=== PATIENT | female | born 1985 ===

== ENCOUNTER 2019-06-11 11:33 | Inpatient (IN) | payer OTHER ==
[~2019-06-11] VITALS: Ht 154.9 cm; Wt 74.5 kg
[2019-06-11] MEDS ORDERED: OXYTOCIN 30U/ 0.9% NaCL 500ML 500 ML IV PRN (20:53)
[2019-06-11] MEDS ORDERED: OXYTOCIN 30U/ 0.9% NaCL 500ML 500 ML IV ONE (20:53)
[2019-06-11] MEDS ORDERED: TERBUTALINE 1 MG/ML, 1ML IVPush PRN (21:00)
[2019-06-11] MEDS ORDERED: ONDANSETRON 2MG/ML, 2ML IVPush PRN (21:00)
[2019-06-11] MEDS ORDERED: PENICILLIN GK 5,000,000 UNITS in DEXTROSE 5% 100 ML IVPB ONE ×2 (21:00→21:09)
[2019-06-11] MEDS ORDERED: FENTANYL PF 100 MCG/2ML IVPush PRN (21:00)
[2019-06-11] MEDS ORDERED: SODIUM CITRATE/CITRIC ACID 30 ML UDC PO PRN (21:00)
[2019-06-11] MEDS ORDERED: TERBUTALINE 1 MG/ML, 1ML SQ PRN (21:00)
[2019-06-11] MEDS ORDERED: FENTANYL PF 100 MCG/2ML IV PRN (21:00)
[2019-06-11] MEDS: LACTATED RINGERS 1,000 ML IV SCH (21:08)
[2019-06-11 21:25] LABS: BASOPHILS # (AUTO) 0.01 x10^3/uL (0-0.1); BASOPHILS % (AUTO) 0 % (0-1); EOSINOPHILS # (AUTO) 0.04 x10^3/uL (0-0.4); EOSINOPHILS % (AUTO) 0 % (1-7); LYMPHOCYTES # (AUTO) 1.75 x10^3/uL (1-3.4); LYMPHOCYTES % (AUTO) 20 % (22-44); MD NO; MEAN CORPUSCULAR HEMOGLOBIN 31.8 pg (27.0-34.8); MEAN CORPUSCULAR HGB CONC 33.7 g/dL (32.4-35.8); MEAN CORPUSCULAR VOLUME 94.5 fL (80-100); MEAN PLATELET VOLUME 8.1 fL (7.4-10.4); MONOCYTES # (AUTO) 0.65 x10^3/uL (0.2-0.8); MONOCYTES % (AUTO) 7 % (2-9); NEUTROPHILS # (AUTO) 6.35 x10^3/uL (1.8-6.8); NEUTROPHILS % (AUTO) 72 % (42-75); PLATELET COUNT 273 x10^3/uL (130-400); RED CELL DISTRIBUTION WIDTH 13.4 % (9.6-15.2)
[2019-06-11] MEDS: PLEASE ENTER HEIGHT AND WEIGHT MC SCH (21:30)
[2019-06-11] MEDS ORDERED: PLEASE ENTER ALLERGIES MC SCH (21:30)
[2019-06-11] MEDS ORDERED: OXYTOCIN 30U/ 0.9% NaCL 500ML 500 ML ONE (22:03)
[2019-06-11] MEDS ORDERED: NEWBORN KIT ONE (22:03)
[2019-06-11] MEDS ORDERED: MISOPROSTOL 200 MCG TABLET ONE (22:03)
[2019-06-11] MEDS ORDERED: LIDOCAINE 1%, 20ML ONE (22:03)
[2019-06-12] MEDS: LACTATED RINGERS 1,000 ML IV SCH ×5 (01:01→16:39)
[2019-06-12] MEDS ORDERED: PREN1TAB60 PO (02:03)
[2019-06-12] MEDS ORDERED: FENTANYL/BUPIV./NS/PF 250 ML EPIDCONT SCH (03:01)
[2019-06-12] MEDS: PLEASE ENTER HEIGHT AND WEIGHT MC SCH (03:45)
[2019-06-12] MEDS: PENICILLIN GK 2,500,000 UNITS in DEXTROSE 5% 100 ML IVPB SCH ×4 (04:24→18:50)
[2019-06-12] MEDS: D5%-LACTATED RINGERS 1,000 ML IV SCH ×4 (05:59→21:59)
[2019-06-12] MEDS ORDERED: FENTANYL/BUPIV./NS/PF 250 ML EPIDCONT ONE (07:14)
[2019-06-12 07:30] VITALS: BP 125/70
[2019-06-12] MEDS ORDERED: FENTANYL PF 100 MCG/2ML ONE (07:30)
[2019-06-12] MEDS ORDERED: BUPIVACAINE 0.25% ONE (07:31)
[2019-06-12] MEDS ORDERED: LIDOCAINE/PF 1.5%-EPI 1:200K, 30ML ONE (08:00)
[2019-06-13] MEDS ORDERED: LACTATED RINGERS 1,000 ML IVBOLUS ONE (00:30)
[2019-06-13] MEDS ORDERED: CEFAZOLIN PMX 1GM/50ML 50 ML IVPB ONE (00:30)
[2019-06-13] MEDS ORDERED: SODIUM CITRATE/CITRIC ACID 30 ML UDC PO ONE (00:30)
[2019-06-13] MEDS ORDERED: AZITHROMYCIN 500 MG in SODIUM CHLORIDE 0.9% 250 ML IV ONE (00:30)
[2019-06-13] MEDS ORDERED: SODIUM CITRATE/CITRIC ACID 30 ML UDC ONE (00:35)
[2019-06-13] MEDS ORDERED: METOCLOPRAMIDE 5 MG/ML, 2ML ONE (00:35)
[2019-06-13] MEDS ORDERED: FENTANYL PF 100 MCG/2ML ONE (00:43)
[2019-06-13] MEDS ORDERED: CEFAZOLIN 1,000 MG ONE (01:26)
[2019-06-13] MEDS ORDERED: PHENYLEPHRINE 10 MG/ML ONE (01:26)
[2019-06-13] MEDS ORDERED: BUPIVACAINE/PF 0.25% ONE (01:26)
[2019-06-13] MEDS ORDERED: LIDOCAINE-MPF 2% ,5ML ONE (01:26)
[2019-06-13] MEDS ORDERED: EPHEDRINE 50 MG/ML, 1ML ONE (01:26)
[2019-06-13] MEDS ORDERED: WATER-INJECTION,STERILE 10 ML IV ONE (01:26)
[2019-06-13] MEDS ORDERED: OXYTOCIN 10 UNITS/ML, 1ML ONE (01:26)
[2019-06-13] MEDS ORDERED: BUPIVACAINE 0.25% ONE ×3 (01:27→02:33)
[2019-06-13] MEDS ORDERED: morphine SULFATE/PF 1 MG/ML, 10ML ONE (01:55)
[2019-06-13] MEDS: OXYTOCIN 30U/ 0.9% NaCL 500ML 500 ML IV SCH ×3 (02:49→19:50)
[2019-06-13] MEDS ORDERED: LACTATED RINGERS 1,000 ML IV SCH (02:49)
[2019-06-13] MEDS ORDERED: SIMETHICONE 80 MG CHEW TAB PO PRN (03:00)
[2019-06-13] MEDS ORDERED: METOCLOPRAMIDE 5 MG/ML, 2ML IV PRN (03:00)
[2019-06-13] MEDS ORDERED: MISOPROSTOL 200 MCG TABLET PO PRN (03:00)
[2019-06-13] MEDS ORDERED: KETOROLAC 30 MG/1 ML ONE (03:47)
[2019-06-13] MEDS ORDERED: HYDROmorphone 2 MG/ML, 1ML IVPush PRN (04:00)
[2019-06-13] MEDS ORDERED: ONDANSETRON 2MG/ML, 2ML IV PRN (04:00)
[2019-06-13] MEDS ORDERED: KETOROLAC 30 MG/1 ML IV PRN (04:00)
[2019-06-13] MEDS ORDERED: OXYcodone 5 MG/5 ML ORAL.SOL UDC PO PRN (04:00)
[2019-06-13] MEDS ORDERED: FENTANYL PF 100 MCG/2ML IV PRN (04:00)
[2019-06-13] MEDS: LACTATED RINGERS 1,000 ML IV SCH ×3 (04:15→19:50)
[2019-06-13] MEDS ORDERED: OXYcodone 5 MG/5 ML ORAL.SOL UDC ONE (04:38)
[2019-06-13 05:30] VITALS: BP 123/80
[2019-06-13] MEDS: D5%-LACTATED RINGERS 1,000 ML IV SCH (05:59)
[2019-06-13 07:35] VITALS: BP 115/78
[2019-06-13] MEDS: DOCUSATE 100 MG CAPSULE PO PRN (08:10)
[2019-06-13] MEDS: PRENATAL VIT/IRON/FA 1 EACH TABLET PO SCH (08:10)
[2019-06-13] MEDS: OXYcodone IR 5MG TABLET PO PRN ×3 (08:10→17:11)
[2019-06-13 09:56] LABS: MEAN CORPUSCULAR HEMOGLOBIN 31.1 pg (27.0-34.8); MEAN CORPUSCULAR HGB CONC 33.3 g/dL (32.4-35.8); MEAN CORPUSCULAR VOLUME 93.4 fL (80-100); MEAN PLATELET VOLUME 7.8 fL (7.4-10.4); PLATELET COUNT 205 x10^3/uL (130-400); RED BLOOD COUNT 3.59 x10^6/uL (3.82-5.3); RED CELL DISTRIBUTION WIDTH 13.5 % (9.6-15.2)
[2019-06-13 10:49] LABS: BASOPHILS # (AUTO) 0.01 x10^3/uL (0-0.1); BASOPHILS % (AUTO) 0 % (0-1); EOSINOPHILS # (AUTO) 0.01 x10^3/uL (0-0.4); EOSINOPHILS % (AUTO) 0 % (1-7); LYMPHOCYTES # (AUTO) 1.24 x10^3/uL (1-3.4); LYMPHOCYTES % (AUTO) 9 % (22-44); MD SCAN; MONOCYTES # (AUTO) 0.75 x10^3/uL (0.2-0.8); MONOCYTES % (AUTO) 5 % (2-9); NEUTROPHILS # (AUTO) 12.15 x10^3/uL (1.8-6.8); NEUTROPHILS % (AUTO) 86 % (42-75)
[2019-06-13 12:05] VITALS: BP 116/82
[2019-06-13] MEDS: ACETAMINOPHEN 325 MG TABLET PO PRN ×2 (12:45→17:11)
[2019-06-13] MEDS: IBUPROFEN 600 MG TABLET PO PRN ×2 (12:45→20:30)
[2019-06-13 16:20] VITALS: BP 103/69
[2019-06-13 19:30] VITALS: BP 126/78
[2019-06-14 01:23] VITALS: BP 109/72
[2019-06-14] MEDS: IBUPROFEN 600 MG TABLET PO PRN ×4 (02:32→20:28)
[2019-06-14 07:20] VITALS: BP 118/77
[2019-06-14] MEDS: DOCUSATE 100 MG CAPSULE PO PRN ×2 (08:33→20:27)
[2019-06-14] MEDS: PRENATAL VIT/IRON/FA 1 EACH TABLET PO SCH (08:33)
[2019-06-14] MEDS: LACTATED RINGERS 1,000 ML IV SCH ×2 (09:52→17:25)
[2019-06-14] MEDS: OXYTOCIN 30U/ 0.9% NaCL 500ML 500 ML IV SCH ×2 (09:52→17:25)
[2019-06-14] MEDS: OXYcodone IR 5MG TABLET PO PRN ×3 (09:56→20:27)
[2019-06-14 20:20] VITALS: BP 133/85
[2019-06-15] MEDS: OXYTOCIN 30U/ 0.9% NaCL 500ML 500 ML IV SCH ×3 (00:09→22:36)
[2019-06-15] MEDS: LACTATED RINGERS 1,000 ML IV SCH ×3 (00:09→22:36)
[2019-06-15] MEDS: IBUPROFEN 600 MG TABLET PO PRN ×3 (04:21→17:10)
[2019-06-15 08:10] VITALS: BP 125/86
[2019-06-15] MEDS: ACETAMINOPHEN 325 MG TABLET PO PRN (08:10)
[2019-06-15] MEDS: DOCUSATE 100 MG CAPSULE PO PRN (08:10)
[2019-06-15] MEDS: PRENATAL VIT/IRON/FA 1 EACH TABLET PO SCH (08:10)
[2019-06-15] MEDS: OXYcodone IR 5MG TABLET PO PRN (08:10)
[2019-06-15 19:24] VITALS: BP 122/83
[2019-06-16] MEDS: IBUPROFEN 600 MG TABLET PO PRN ×3 (00:44→15:18)
[2019-06-16 07:10] VITALS: BP 124/85
[2019-06-16] MEDS: DOCUSATE 100 MG CAPSULE PO PRN (08:21)
[2019-06-16] MEDS: PRENATAL VIT/IRON/FA 1 EACH TABLET PO SCH (08:21)
[2019-06-16] MEDS: LACTATED RINGERS 1,000 ML IV SCH (10:49)
[2019-06-16] MEDS: OXYTOCIN 30U/ 0.9% NaCL 500ML 500 ML IV SCH (10:49)
[2019-06-16] MEDS ORDERED: IBUP-1222 PO (14:49)
[2019-06-16] MEDS ORDERED: DOCU-131 PO (14:49)
[2019-06-16] MEDS ORDERED: OXYC-302 PO (14:49)
[2019-06-16 20:00] VITALS: BP 131/83
[2019-06-16] MEDS: OXYcodone IR 5MG TABLET PO PRN (20:09)
[2019-06-17] MEDS: OXYcodone IR 5MG TABLET PO PRN ×2 (04:20→10:55)
[2019-06-17] MEDS: IBUPROFEN 600 MG TABLET PO PRN ×2 (04:20→10:55)
[2019-06-17 07:45] VITALS: BP 136/88
[2019-06-17] MEDS: DOCUSATE 100 MG CAPSULE PO PRN (10:55)
[2019-06-17] MEDS: PRENATAL VIT/IRON/FA 1 EACH TABLET PO SCH (10:56)
== END 2019-06-17 11:00 | disposition home or self-care (01) | DRG 788 ==
LOC: LDIP 20:07 → 2NW 06-13 05:10
PROVIDERS: ADMIT Obstetrics & Gynecology Maternal & Fetal Medicine; ATTEND Obstetrics & Gynecology Maternal & Fetal Medicine
PROC: 10D00Z1 Extraction of Products of Conception, Low, Open Approach (ICD-10-PCS; principal; 2019-06-13)
DX: O62.0 Primary inadequate contractions (principal); O99.824 Streptococcus B carrier state complicating childbirth; O69.81X0 Labor and delivery complicated by cord around neck, without compression, not applicable or unspecified; Z3A.39 39 weeks gestation of pregnancy; Z37.0 Single live birth
CPT/HCPCS: 36415; J3490; J7121; 85025; 86592; 86850; 86900; G0378; J0456; J0690; J1885; J2274; J2540; J3010; J2370; J2590; J2765; J7050; J7120